=== PATIENT | male | born 1970 | race African-American/Black ===

== ENCOUNTER 2016-07-19 00:33 | Emergency (ER) | payer OTHER ==
[~2016-07-19] VITALS: Ht 182.9 cm; Wt 99.0 kg
[~2016-07-19 00:33] MED LIST: CARB100C17 PO; DEPA250T PO; HYDR12.56 PO
[2016-07-19 00:35] VITALS: BP 141/98; PULSE 78; RESP 16; TEMP 97.5; O2SAT 99
[2016-07-19 00:40] VITALS: RESP 18; O2SAT 99
[2016-07-19] MEDS ORDERED: DIVA250ER PO (00:57)
[2016-07-19] MEDS ORDERED: CARB100C17 PO (00:57)
[2016-07-19] MEDS ORDERED: SODIUM CHLOR 0.9% 1000 ML INJ 1,000 ML IV ONE (01:12)
[2016-07-19] MEDS ORDERED: LORazepam 2 MG/ML VIAL IVS ONE (01:15)
[2016-07-19] MEDS ORDERED: KETOROLAC TROMETHAMINE 30 MG/ML (IVP) VIAL IVP ONE (01:15)
[2016-07-19] MEDS ORDERED: SODIUM CHLORIDE 0.9% FLUSH 10 ML FLUSH IVF PRN (01:15)
[2016-07-19 01:30] LABS: AUTOMATED NEUTROPHIL # 6.4 TH/MM3 (1.8-7.7); BASOPHIL % 0.4 % (0.0-2.0); EOSINOPHIL % 0.4 % (0.0-4.0); HEMATOCRIT 38.9 % (39.0-51.0); HEMO FLAGS DIFF FINAL; LYMPH % 18.7 % (9.0-44.0); LYMPHOCYTE # 1.7 TH/MM3 (1.0-4.8); MEAN CELL VOLUME 91.4 FL (80.0-100.0); MEAN CORPUSCULAR HEMOGLOBIN 30.5 PG (27.0-34.0); MEAN CORPUSCULAR HGB CONC 33.3 % (32.0-36.0); MONO % 10.4 % (0.0-8.0); NEUT % 70.1 % (16.0-70.0); PLATELET COUNT 184 TH/MM3 (150-450); RED BLOOD COUNT 4.25 MIL/MM3 (4.50-5.90); RED CELL DISTRIBUTION WIDTH 13.5 % (11.6-17.2); WHITE BLOOD COUNT 9.2 TH/MM3 (4.0-11.0)
--- NOTE | 2016-07-19 01:39 | PD ---
HPI Chief Complaint: Seizure Time Seen by Provider: 01:04 Travel History International Travel<30 days: No Contact w/Intl Traveler<30days: No Traveled to known affect area: No History of Present Illness HPI This Is a 46-year-old man who presents to the emergency department complaining of left leg pain following seizures. He is a history of seizures. His last seizures were last year until he had one yesterday, and then 3 today. States his seizures are usually grand mal type seizures. He felt it coming on. He is a history of a left hip replacement. He's had pain in his left hip since his most recent seizure. CT was walking in the hallway when he sort of fell. He is legally blind as well. He is also been under a lot of emotional stress recently. He denies ring out of either one of his medications. He otherwise has been feeling generally well and healthy. No other recent illness or injury. Is been able to walk with his walker since the seizures. States he uses a walker sometimes was have bothers him which it does from time to time. History Past Medical History Narrative Medical Hypertension Seizures Legally blind Social History Alcohol Use: No Tobacco Use: No Allergies-Medications (Allergen,Severity, Reaction): Coded Allergies: No Known Allergies (Verified , 05/04/10) Uncoded Allergies: DEPAKOTE GENERIC (Adverse Reaction, Severe, DIZZINESS, 05/04/10) Reported Meds & Prescriptions Reported Meds & Active Scripts Active Reported Carbatrol ER 12 HR (Carbamazepine) 100 Mg Cap 100 Mg PO Q12HR Depakote ER (Divalproex Sodium) 250 Mg Jovany 250 Mg PO DAILY Review of Systems Except as stated in HPI: all other systems reviewed are Neg Physical Exam Narrative GENERAL: 46 year-old man, no acute distress. SKIN: Focused skin assessment warm/dry. HEAD: Atraumatic. Normocephalic. EYES: Pupils equal and round. No scleral icterus. No injection or drainage. ENT: No nasal bleeding or discharge. Mucous membranes pink and moist. NECK: Trachea midline. No JVD. CARDIOVASCULAR: Regular rate and rhythm. No murmur appreciated. RESPIRATORY: No accessory muscle use. Clear to auscultation. Breath sounds equal bilaterally. GASTROINTESTINAL: Abdomen soft, non-tender, nondistended. Hepatic and splenic margins not palpable. MUSCULOSKELETAL: No obvious deformities. There is no obvious bruising swelling or deformity. He has pain in the left thigh, as well as some with range of motion of the left hip. He also some pain and tenderness on his left ankle. There is some soft tissue swelling over the lateral malleolus. No obvious instability. NEUROLOGICAL: Awake and alert. No obvious cranial nerve deficits. Motor grossly within normal limits. Normal speech. PSYCHIATRIC: Appropriate mood and affect; insight and judgment normal. Data Data Last Documented VS Vital Signs Date Time Temp Pulse Resp B/P Pulse Ox O2 Delivery O2 Flow Rate FiO2 07/19/16 00:40 66 16 100 Room Air 07/19/16 00:35 97.5 141/98 Orders Complete Blood Count With Diff (07/19/16 01:12) Carbamazepine (Tegretol) (07/19/16 01:12) Valproic Acid (Depakene) (07/19/16 01:12) Ct Brain W/O Iv Contrast(Rout) (07/19/16 ) Blood Glucose (07/19/16 01:12) Ecg Monitoring (07/19/16 01:12) Iv Access Insert/Monitor (07/19/16 01:12) Oximetry (07/19/16 01:12) Comprehensive Metabolic Panel (07/19/16 01:12) Sodium Chlor 0.9% 1000 Ml Inj (Ns 1000 M (07/19/16 01:12) Sodium Chloride 0.9% Flush (Ns Flush) (07/19/16 01:15) Lorazepam Inj (Ativan Inj) (07/19/16 01:15) Ketorolac Inj (Toradol Inj) (07/19/16 01:15) Pelvis, Ap Only (Routine) (07/19/16 ) Femur (Ap & Lat/2vws) (07/19/16 ) Ankle, Complete (Aig0mfu) (07/19/16 ) Labs Laboratory Tests Test 07/19/16 00:50 White Blood Count 9.2 TH/MM3 Red Blood Count 4.25 MIL/MM3 Hemoglobin 13.0 GM/DL Hematocrit 38.9 % Mean Corpuscular Volume 91.4 FL Mean Corpuscular Hemoglobin 30.5 PG Mean Corpuscular Hemoglobin 33.3 % Concent Red Cell Distribution Width 13.5 % Platelet Count 184 TH/MM3 Mean Platelet Volume 9.7 FL Neutrophils (%) (Auto) 70.1 % Lymphocytes (%) (Auto) 18.7 % Monocytes (%) (Auto) 10.4 % Eosinophils (%) (Auto) 0.4 % Basophils (%) (Auto) 0.4 % Neutrophils # (Auto) 6.4 TH/MM3 Lymphocytes # (Auto) 1.7 TH/MM3 Monocytes # (Auto) 1.0 TH/MM3 Eosinophils # (Auto) 0.0 TH/MM3 Basophils # (Auto) 0.0 TH/MM3 CBC Comment DIFF FINAL Differential Comment Sodium Level 143 MEQ/L Potassium Level 4.1 MEQ/L Chloride Level 110 MEQ/L Carbon Dioxide Level 25.2 MEQ/L Anion Gap 8 MEQ/L Blood Urea Nitrogen 14 MG/DL Creatinine 1.04 MG/DL Estimat Glomerular Filtration 93 ML/MIN Rate Random Glucose 116 MG/DL Calcium Level 8.9 MG/DL Total Bilirubin 0.3 MG/DL Aspartate Amino Transf 42 U/L (AST/SGOT) Alanine Aminotransferase 43 U/L (ALT/SGPT) Alkaline Phosphatase 138 U/L Total Protein 8.1 GM/DL Albumin 3.7 GM/DL Valproic Acid (Depakene) Level 31 MCG/ML Carbamazepine (Tegretol) Level 2.4 MCG/ML [facility] Medical Decision Making Medical Screen Exam Complete: Yes Emergency Medical Condition: Yes Interpretation(s) LABS: CBC unremarkable. CMP is unremarkable. Depakote 31, carbamazepine 2.[address] negative Pelvis x-ray negative Left femur x-ray: Negative Left ankle x-ray: Negative. Differential Diagnosis Seizure, head injury, head injury, other Narrative Course Medical decision making 46-year-old man with seizure disorder, seizures today, left hip pain, looks otherwise well. We'll check imaging of the left hip, imaging of the head, labs. Diagnosis Primary Impression: Seizures Additional Impression: Left hip pain Additional Instructions: Continue seizure medications. Follow-up with your primary doctor in the next 2-[address] or operate heavy machinery until cleared by neurology. You should avoid being in any situation where if you had a seizure it could be dangerous such as swimming, looking on a ladder, or other such activities. Return to the emergency department for any seizures lasting more than 5 minutes , [id number] seizures, or seizures with prolonged confusion afterwards. Med/Other Pt SpecificInfo: No Change to Meds Disposition: 01 DISCHARGE HOME Condition: Stable Cleveland Johnson MD July 19, 2016 01:39
[2016-07-19 01:48] LABS: ALT (GPT) 43 U/L (12-78); ANION GAP 8 MEQ/L (5-15); AST (GOT) 42 U/L (15-37); BICARBONATE 25.2 MEQ/L (21.0-32.0); BLOOD UREA NITROGEN 14 MG/DL (7-18); CHLORIDE 110 MEQ/L (98-107); GLOMERULAR FILTRATION RATE 93 ML/MIN (>89); POTASSIUM 4.1 MEQ/L (3.5-5.1); SODIUM (NA) 143 MEQ/L (136-145)
[2016-07-19 01:50] LABS: ALKALINE PHOSPHATASE 138 U/L (45-117); TOTAL BILIRUBIN ADULT 0.3 MG/DL (0.2-1.0)
--- NOTE | 2016-07-19 01:54 | RADRPT ---
EXAM DATE/TIME: 07/19/2016 01:28 [facility] COMPARISON: No previous studies available for comparison. INDICATIONS : Fall from seziure. MEDICAL HISTORY : None. SURGICAL HISTORY : None. ENCOUNTER: Initial ACUITY: 1 day PAIN SCORE: 0/10 LOCATION: Left hip FINDINGS: A single frontal view of the pelvis demonstrates no evidence of fracture. Left-sided hip arthroplasty partially seen. The bony pelvic ring is intact. Bony mineralization is normal. The soft tissues a re intact. CONCLUSION: No acute disease. Jame Michaels Jr., MD on July 19, 2016 at 1:52 Board Certified Radiologist. This report was verified electronically.
--- NOTE | 2016-07-19 01:55 | RADRPT ---
EXAM DATE/TIME: 07/19/2016 01:29 [facility] COMPARISON: No previous studies available for comparison. INDICATIONS : Fall from seziure. MEDICAL HISTORY : None. SURGICAL HISTORY : None. ENCOUNTER: Initial ACUITY: 1 day PAIN SCORE: 0/10 LOCATION: Left femur FINDINGS: 4 views of the left femur reveal a total hip prosthesis in good position. No fractures or dislocation s. Soft tissues are unremarkable. CONCLUSION: No acute abnormality. Jame Michaels Jr., MD on July 19, 2016 at 1:53 Board Certified Radiologist. This report was verified electronically.
--- NOTE | 2016-07-19 01:56 | RADRPT ---
EXAM DATE/TIME: 07/19/2016 01:34 [facility] COMPARISON: No previous studies available for comparison. INDICATIONS : Fall from seziure. MEDICAL HISTORY : None. SURGICAL HISTORY : None. ENCOUNTER: Initial ACUITY: 1 day PAIN SCORE: 0/10 LOCATION: Left ankle FINDINGS: 4 views of the left lower leg reveal old trauma involving the tibia and fibula. An intramedullary iker is noted. No acute fracture or dislocation. Soft tissues are unremarkable. CONCLUSION: No acute abnormality. Jame Michaels Jr., MD on July 19, 2016 at 1:54 Board Certified Radiologist. This report was verified electronically.
--- NOTE | 2016-07-19 02:03 | RADRPT ---
EXAM DATE/TIME: 07/19/2016 01:53 [facility] COMPARISON: CT BRAIN W/O CONTRAST, May 04, 2010, 23:17. INDICATIONS : Seizure and fall. RADIATION DOSE: 34.49 CTDIvol (mGy) MEDICAL HISTORY : Hypertension. Seizures. SURGICAL HISTORY : Left hip surgery. ENCOUNTER: Initial ACUITY: 1 day PAIN SCALE: 3/10 LOCATION: cranial TECHNIQUE: Multiple contiguous axial images were obtained of the head. Using automated exposure control and adj ustment of the mA and/or kV according to patient size, radiation dose was kept as low as reasonably a chievable to obtain optimal diagnostic quality images. FINDINGS: CEREBRUM: The ventricles are normal for age. No evidence of midline shift, mass lesion, hemorrhage or acute in farction. No extra-axial fluid collections are seen. POSTERIOR FOSSA: The cerebellum and brainstem are intact. The 4th ventricle is midline. The cerebellopontine angle i s unremarkable. EXTRACRANIAL: The visualized portion of the orbits is intact. SKULL: The calvaria is intact. No evidence of skull fracture. CONCLUSION: Normal examination. Jame Michaels Jr., MD on July 19, 2016 at 2:01 Board Certified Radiologist. This report was verified electronically.
[2016-07-19] MEDS ORDERED: carBAMazepine 200 MG TAB PO ONE (02:15)
[2016-07-19] MEDS ORDERED: DIVALPROEX SODIUM E.R. 250 MG TAB PO ONE (02:15)
[2016-07-19 06:34] VITALS: BP 133/64; TEMP 98.9
== END 2016-07-19 06:36 | disposition home or self-care (01) ==
LOC: NEPE 00:33
DX: R56.9 Unspecified convulsions (principal); M25.552 Pain in left hip; H54.8 Legal blindness, as defined in USA; I10 Essential (primary) hypertension
CPT/HCPCS: 70450; 72170; 73552; 73610; 80053; 80156; 80164; 85025; 96374; 96375; 99284; J1885; J2060; J7030